=== PATIENT | male | born 1945 | race American Indian/Alaskan Native ===

== ENCOUNTER 2019-01-22 15:03 | Inpatient (IN) | payer SELFPAY ==
[2019-01-22 17:02] LABS: Absolute Lymphocytes (CBC) 1.4 K/uL (0.7-4.9); Basophils % 1.9 % (0-1.3); Eosinophils % 1.7 % (0-4.4); Hematocrit 33.2 % (39.6-49.0); Lymphocytes % 15.7 % (15.3-44.8); MPV 7.7 fL (7.6-11.3); Monocytes % 9.9 % (3.3-12.3); RBC Red Blood Cell Count 3.78 M/uL (4.33-5.43)
[2019-01-22 17:06] LABS: Albumin 2.9 g/dL (3.4-5.0); Bilirubin Total 0.3 mg/dL (0.2-1.0); Magnesium 2.1 mg/dL (1.8-2.4); Potassium 4.2 mmol/L (3.5-5.1); Protein, Total 6.7 g/dL (6.4-8.2)
[2019-01-22] MEDS: NA CHLORIDE 0.9% 1,000 ML IV SCH (17:47)
[2019-01-22] MEDS: ENOXAPARIN 30 MG/0.3 ML SQ SCH (17:52)
[2019-01-22] MEDS: Meropenem 1,000 MG in NA CHLORIDE 0.9% 100 ML IV SCH (17:53)
[2019-01-22] MEDS ORDERED: Meropenem 1000 MG/VIAL IV SCH (18:00)
[2019-01-22] MEDS ORDERED: PNEUMOCOCCAL VACCINE 0.5 ML IMVAC ONE (18:00)
[2019-01-22] MEDS ORDERED: D50W 25 GM/50 ML SYRINGE IV PRN (19:09)
[2019-01-22] MEDS ORDERED: ACETAMINOPHEN 500 MG TAB PO PRN (19:09)
[2019-01-22] MEDS ORDERED: GLUCAGON 1 MG/VIAL IM PRN (19:09)
[2019-01-22] MEDS: INSULIN -REGULAR HUMAN 50 UNIT/0.5 ML ML SQ SCH (20:52)
[2019-01-22] MEDS: CLOPIDOGREL BISULFATE 75 MG PO SCH (21:00)
[2019-01-22] MEDS: TELMISARTAN 80 MG PO SCH (21:00)
[2019-01-22] MEDS: ATORVASTATIN CALCIUM 20 MG PO SCH (21:00)
[2019-01-23] MEDS: Meropenem 1,000 MG in NA CHLORIDE 0.9% 100 ML IV SCH ×2 (05:29→17:16)
[2019-01-23] MEDS: NA CHLORIDE 0.9% 1,000 ML IV SCH ×3 (05:29→20:54)
--- NOTE | 2019-01-23 05:53 | HP ---
Date of Admission: 01/22/2019 Chief Complaint: Back pain. History Of Present Illness: This is a 73-year-old pleasant male patient who came to see me for the f irst time on January 02, 2019. He is visiting here from [place] and he came to [facility] about a month before corinne e came to see me. When he saw me on January 02, 2019, he started to have fever, chills about 24 hours b efore he came to see me, and no other complaints reported at that time. No GI or urinary complaints. No respiratory complaints. Upon exam, he had left lower quadrant abdominal tenderness and I was co ncerned about possibility of diverticulitis. Stat blood work was done which was CBC, chemistry profi le, and subsequently CAT scan of abdomen was done which showed evidence of changes of pyelonephritis, no evidence of hydronephrosis or any kidney stone, and this was involving his left kidney and left u reter system. His white count was around 17,000 to 18,000. The patient was started on Cipro and a f ew days later about 48 hours after that he became afebrile and he finished taking his Cipro. I saw corinne im on 01/17/2019 for followup. He did not have any fever, but he was not feeling back to his normal self. Had some vague abdominal discomfort, some back pain, some nausea, poor appetite. We did repea t CBC and chemistry. White count was still elevated around 15, which was slightly better compared to before. Urine culture was collected. Urinalysis done at office was still abnormal consistent with infection. Urine culture results finally came back yesterday and this was done through [facility] and it showed E coli and it is ESBL. The patient's son was contacted today and arrangements were comple janelle for patient to be admitted to hospital as a direct admission for further management of this probl em. Allergies: NO KNOWN ALLERGIES. Medications: Atorvastatin 20 mg daily, Augmentin 500 mg twice a day which was started on 01/17/2019, clopidogrel 75 mg p.o. daily, levocetirizine 5 mg p.o. daily, metformin 500 mg 2 times a day, telmis jana 80 mg p.o. daily. Review of Systems: Genitourinary: As mentioned above. GI: As mentioned above. Constitutional: As mentioned above. All other systems reviewed and negative. Social History: Positive for use of chewing tobacco, use of alcohol negative. Past Surgical History: Hemorrhoidectomy, hernia repair. Family History: Significant for father with lung cancer. Past Medical History: Significant for hypertension, hyperlipidemia, type 2 diabetes mellitus, and ch ronic kidney disease stage 3. Physical Examination: Vital Signs: Temperature 98.6, pulse 69, respiratory rate 18, blood pressure 134/80, oxygen saturati on 99%, height 5 feet 5 inches, weight 171 pounds. General: Awake, alert, oriented, not in distress. HEENT: Head atraumatic, normocephalic. Conjunctivae nonerythematous. Sclerae white. Mouth, no thr ush or edema noted. Ears/Nose, no mass, lesion, discharge noted. Neck: Supple. No JVD, lymph nodes, bruit, thyromegaly noted. Lungs: Bilateral good equal air entry. Clear to auscultation. No rhonchi. No rales. Heart: Normal heart sounds, no murmur or gallop. Abdomen: Soft, bowel sounds normal. No guarding, rigidity, tenderness, mass, hepatosplenomegaly, dis tention, or bruit noted. Extremities: No leg edema. No calf tenderness. Skin: No rash, ulcer, cellulitis. Lymphatics: No lymph node enlargement in neck, supraclavicular, infraclavicular region. Neuro: No focal neurological deficit. Chest: Unremarkable. External Genitalia: Deferred. Rectal: Deferred. Laboratory Data: White count 9.1, hemoglobin 10.9, platelets 416. Sodium 132, potassium 4.2, chlori de 99, bicarb 24, BUN 14, creatinine 1.63. His baseline creatinine is around 1.4 to 1.5, glucose 163 . Liver function test unremarkable. Hemoglobin A1c 10. Impression: 1.Acute pyelonephritis, organism Escherichia coli, extended-spectrum beta-lactamase. 2.Chronic kidney disease stage 3. 3.Hyponatremia. 4.Hypertension. 5.Type 2 diabetes mellitus. 6.Hyperlipidemia. Plan: Admit patient to hospital for further evaluation and management of this problem. The patient is appropriate for inpatient and is expected to spend 2 midnights in hospital. We will go ahead and continue home medications per order. DVT prophylaxis with Lovenox will be given. We will start isamar ent on IV meropenem 1000 mg IV piggyback every 12 hours and I will see him tomorrow for followup. De tails and plan of treatment discussed with the patient and his family. CORTNEY/SHAWN Voice ID: [id number]
[2019-01-23 05:55] LABS: Urine Appearance CLEAR; Urine Bilirubin NEGATIVE (NEG); Urine Blood TRACE (NEG); Urine Color YELLOW; Urine Glucose NEGATIVE (NEG); Urine Protein NEGATIVE (NEG); Urine Specific Gravity <=1.005 (1.005-1.030); Urine Urobilinogen 0.2 mg/dL (0.2-1.0)
[2019-01-23 05:56] LABS: Urine Microscopic Reflex ORDER UMIC
[2019-01-23 06:03] LABS: Urine Bacteria <20 /HPF (NONE SEEN); Urine Culture Reflex Order REFLEXED; Urine RBC <5 /HPF (NONE SEEN)
[2019-01-23] MEDS: INSULIN -REGULAR HUMAN 50 UNIT/0.5 ML ML SQ SCH ×4 (07:30→20:59)
--- NOTE | 2019-01-23 09:05 | RAD REPORT ---
EXAM DESCRIPTION: US - Renal Ultrasound-Complete - 01/23/2019 8:58 am CLINICAL HISTORY: Acute pyelonephritis COMPARISON: None. FINDINGS: The right kidney measures 8.8 x 4.2 x 4.0 cm. The left kidney measures 8.1 x 4.6 x 3.7 cm . Renal cortical thickness and echogenicity are normal. No hydronephrosis or suspicious renal mass. Urinary bladder is contracted limiting assessment. IMPRESSION: No hydronephrosis or suspicious renal mass. No other significant findings.
[2019-01-23] MEDS: ENOXAPARIN 30 MG/0.3 ML SQ SCH (17:17)
[2019-01-23] MEDS: METFORMIN HCL 500 MG PO SCH (17:18)
[2019-01-23] MEDS: ATORVASTATIN CALCIUM 20 MG PO SCH (20:55)
[2019-01-23] MEDS: CLOPIDOGREL BISULFATE 75 MG PO SCH (20:56)
[2019-01-23] MEDS: TELMISARTAN 80 MG PO SCH (20:57)
--- NOTE | 2019-01-24 02:21 | PN ---
Date of Progress Note: 01/23/2019 Subjective: The patient was seen this morning for followup. His son-in-law was present with him at bedside. The patient feels a lot better after IV antibiotic was started. His flank pain has resolve d completely. No GI complaints. No urinary complaints, and overall, he feels stronger compared to radha mancuso. Objective: Vital Signs: Reviewed. HEENT: Unremarkable. Lungs: Clear to auscultation. Heart: Sounds normal. Abdomen: Soft. Bowel sounds normal. No guarding, rigidity, tenderness, or distention. Extremities: No leg edema. Labs: Renal ultrasound done today is unremarkable. Impression: 1.Acute pyelonephritis, organism Escherichia coli, extended-spectrum beta-lactamase. 2.Chronic kidney disease stage 3. 3.Type 2 diabetes mellitus, uncontrolled. 4.Hypertension. 5.Hyperlipidemia. Plan: We will continue sliding scale insulin. Monitor fingerstick blood sugar. We will decide if w e need to start glimepiride while in the hospital or upon discharge we will continue metformin. Cont inue antihypertensive medication and IV antibiotics. Ambulation was encouraged. Continue IV fluid. I wi ll see him tomorrow for followup. CORTNEY/MODL Voice ID: [id number] Report ID: [id number]
[2019-01-24] MEDS: Meropenem 1,000 MG in NA CHLORIDE 0.9% 100 ML IV SCH ×2 (05:23→17:22)
[2019-01-24] MEDS: INSULIN -REGULAR HUMAN 50 UNIT/0.5 ML ML SQ SCH ×4 (07:30→21:00)
[2019-01-24] MEDS: METFORMIN HCL 500 MG PO SCH ×3 (08:00→17:23)
[2019-01-24] MEDS: GLIMEPIRIDE 2 MG TABLET PO SCH (08:28)
--- NOTE | 2019-01-24 13:27 | PN ---
Date of Progress Note: 01/24/2019 Subjective: The patient was seen this morning for followup. No new complaints or problems reported by him. Denies any abdominal pain, back pain. No nausea, vomiting, diarrhea. Objective: Vital Signs: Reviewed. HEENT: Unremarkable. Lungs: Clear to auscultation. Heart: Sounds normal. Abdomen: Soft. Bowel sounds normal. No guarding, rigidity, tenderness, or distention. Extremities: No leg edema. Impression: 1.Acute pyelonephritis. 2.Chronic kidney disease, stage 3. 3.Diabetes mellitus. 4.Hypertension. Plan: We will go ahead and discontinue IV fluid. Continue IV meropenem. Renal ultrasound was unrem arkable. Details were discussed with the patient. We will repeat blood work tomorrow. I will see h im tomorrow for followup. CORTNEY/MODL Voice ID: [id number] Report ID: [id number]
[2019-01-24] MEDS: ENOXAPARIN 30 MG/0.3 ML SQ SCH (17:22)
[2019-01-24] MEDS: TELMISARTAN 80 MG PO SCH (21:57)
[2019-01-24] MEDS: ATORVASTATIN CALCIUM 20 MG PO SCH (21:57)
[2019-01-24] MEDS: CLOPIDOGREL BISULFATE 75 MG PO SCH (21:57)
[2019-01-25] MEDS: Meropenem 1,000 MG in NA CHLORIDE 0.9% 100 ML IV SCH ×2 (05:36→19:37)
[2019-01-25 06:13] LABS: Absolute Lymphocytes (CBC) 0.7 K/uL (0.7-4.9); Basophils % 0.4 % (0-1.3); Hematocrit 25.5 % (39.6-49.0); Lymphocytes % 6.2 % (15.3-44.8); MPV 8.2 fL (7.6-11.3); Monocytes % 4.8 % (3.3-12.3); RBC Red Blood Cell Count 2.93 M/uL (4.33-5.43)
[2019-01-25 06:27] LABS: Potassium 5.3 mmol/L (3.5-5.1)
[2019-01-25] MEDS ORDERED: SUCCINYLCHOLINE 20 MG/ML (10 ML) IV ONE (07:28)
[2019-01-25] MEDS ORDERED: FENTANYL CITR 250 MCG/5 ML ONE (07:28)
[2019-01-25] MEDS ORDERED: PROPOFOL 200 MG/20 ML VIAL IV ONE ×3 (07:28→17:37)
[2019-01-25 07:30] LABS: Blood Morphology Comment NOT SEEN (NOT SEEN); Platelet Estimate ADEQ
[2019-01-25] MEDS ORDERED: EPHEDRINE SULF 50 MG/ML VIAL ONE (07:31)
[2019-01-25] MEDS ORDERED: MORPHINE SULFATE/PF 1 MG/ML (10 ML AMP) ONE (07:31)
[2019-01-25] MEDS ORDERED: OXYTOCIN 10 UNIT/ML ML IV ONE (07:31)
[2019-01-25] MEDS ORDERED: Phenylephrine HCl 10 MG/ML 1 ML VIAL ONE (08:02)
[2019-01-25] MEDS: INSULIN -REGULAR HUMAN 50 UNIT/0.5 ML ML SQ SCH ×4 (08:26→21:08)
[2019-01-25] MEDS: GLIMEPIRIDE 2 MG TABLET PO SCH (08:27)
[2019-01-25 08:29] LABS: Basophils % 0.7 % (0-1.3); Hematocrit 25.7 % (39.6-49.0); Lymphocytes % 14.7 % (15.3-44.8); MPV 8.1 fL (7.6-11.3); Monocytes % 6.3 % (3.3-12.3); RBC Red Blood Cell Count 2.92 M/uL (4.33-5.43)
[2019-01-25 08:41] LABS: Albumin 2.6 g/dL (3.4-5.0); Bilirubin Total 0.3 mg/dL (0.2-1.0); Potassium 4.6 mmol/L (3.5-5.1); Protein, Total 6.2 g/dL (6.4-8.2); Uric Acid 3.4 mg/dL (3.5-7.2)
[2019-01-25 10:48] LABS: Urine Appearance CLOUDY; Urine Bilirubin NEGATIVE (NEG); Urine Blood NEGATIVE (NEG); Urine Color YELLOW; Urine Glucose 1+ (NEG); Urine Protein 1+ (NEG); Urine Specific Gravity 1.015 (1.005-1.030); Urine Urobilinogen 0.2 mg/dL (0.2-1.0); Urine pH 6.5 (5.0-7.0)
[2019-01-25] MEDS: NA CHLORIDE 0.9% 1,000 ML IV SCH ×2 (10:49→19:36)
[2019-01-25] MEDS ORDERED: FAMOTIDINE 20 MG/2 ML VIAL IV SCH (11:00)
[2019-01-25 11:47] LABS: Urine Culture Reflex Order NOT NEEDED
[2019-01-25 11:52] LABS: Urine Bacteria <20 /HPF (NONE SEEN); Urine RBC <5 /HPF (NONE SEEN)
[2019-01-25] MEDS: PANTOPRAZOLE INJ 80 MG in NA CHLORIDE 0.9% 250 ML IV SCH (12:30)
[2019-01-25 12:34] LABS: Absolute Lymphocytes (CBC) 1.9 K/uL (0.7-4.9); Basophils % 0.8 % (0-1.3); Eosinophils % 0.1 % (0-4.4); Hematocrit 20.5 % (39.6-49.0); Lymphocytes % 16.7 % (15.3-44.8); RBC Red Blood Cell Count 2.34 M/uL (4.33-5.43)
[2019-01-25 12:42] LABS: Potassium 4.5 mmol/L (3.5-5.1)
[2019-01-25] MEDS ORDERED: ERYTHROMYCIN 500 MG in NA CHLORIDE 0.9% 100 ML IV ONE (14:08)
[2019-01-25] MEDS ORDERED: ONDANSETRON 4 MG/2 ML VIAL IV PRN (14:08)
[2019-01-25] MEDS ORDERED: PROMETHAZINE 25 MG/ML VIAL IV PRN (14:08)
[2019-01-25] MEDS ORDERED: NA CHLORIDE 0.9% 250 ML ONE ×2 (14:24→20:12)
--- NOTE | 2019-01-25 16:43 | EKG ---
Test Date: 2019-01-25 Test Time: 10:18:10 Hand Ii Tube Bender: DIANA MEASUREMENT RESULTS: Intervals: Rate: 95 AR: 118 QRSD: 76 QT: 366 QTc: 459 Braddock: P: 55 AR: 118 QRS: 62 T: -10 INTERPRETIVE STATEMENTS: Normal sinus rhythm Nonspecific T wave abnormality Abnormal ECG No previous ECG available for comparison Electronically Signed On 01-25-19 16:41:43 CDT by Shay Cano
--- NOTE | 2019-01-25 16:46 | PN ---
Date of Progress Note: 01/25/2019 Subjective: The patient was seen this morning for followup. When I saw him this morning, he was keerthi estrada in bed. His son-in-law was present with him at bedside and reported that around 3 o'clock early m orning, the patient felt like he was having some upset stomach and felt like some acid problem. He w ent to the bathroom and vomited once and that looked like coffee-grounds emesis. After that vomiting episode as he was standing in the bathroom, he felt very weak and appeared somewhat confused, so vikas bala helped him at that time and he was diaphoretic. He was brought back to the room. After he vomit ed, he said his upset stomach feeling started to feel better. Did not have any chest pain. Nursing staff reported that the vomitus looked like coffee-ground type of material, but the patient thinks th at, that could have been due to some certain type of food that he ate yesterday. In any case, this m orning when I saw him, he was feeling somewhat better compared to last night. Denies any back pain. No diarrhea. No blood in stool. No black stool. Vital signs reviewed. His blood pressure was low when he had this episode during nighttime, systolic blood pressure between 100 to 110. When I saw h im, he was lying in bed, not in distress. Objective: Vital Signs: Reviewed. HEENT: Unremarkable. Lungs: Clear to auscultation. No rhonchi. No rales. Heart: Heart sounds normal. Abdomen: Soft. Bowel sounds normal. No guarding, rigidity. No tenderness. No distention. No hepa tosplenomegaly. No bruit. Extremities: No leg edema. Laboratory Data: This morning, his white count was 11.7, hemoglobin 8.4, platelets 391. His hemoglo bin 2 days ago on 01/22/2019 was 10.9 and white count was 9.1 at that time. I repeated another CBC. This morning white count 13.4, hemoglobin 8.4, platelets 423. His last chemistry, sodium 137, potas sium 4.6, chloride 103, bicarb 24, BUN 50, creatinine 1.87, glucose 199. His uric acid level 8.5. T otal CPK was 24 and troponin less than 0.02. Impression: 1.Acute pyelonephritis, organism Escherichia coli. 2.extended-spectrum beta-lactamase. 3.Acute kidney injury. 4.Volume depletion. Plan: After I saw the patient, IV Pepcid was ordered. IV fluid bolus was ordered along with mainten ance IV fluid and after then I saw the patient, he had an episode of coffee-ground emesis and faintin g type of episode. His family was present with him at bedside, so he did not have any fall or injury . Nurses did evaluate him and contacted me, informed me that he had coffee-ground emesis and I have ordered another set of blood work along with 2 units of PRBC for type and crossmatch and we will cons ider blood transfusion depending on his blood test. We will discontinue his Plavix that he has been on it for long time after he had stroke several years ago. We will discontinue his Lovenox that he w as getting for DVT prophylaxis. Nurse was advised to put SCD in place for DVT prophylaxis. We will keep him n.p.o. IV fluid and IV Protonix were started. We do not have any GI on-call. So, depending on how he does with this GI bleeding problem, we will have to make a decision to transfer him to [facility]. If he does not improve with conservative medical treatment that we are providing right now and if he requires any endoscopy, then we will have to transfer him to [place]. I will see him tomorrow for followup and this morning, I have discontinued his metformin and telmisartan. CORTNEY/MODL Voice ID: [id number] Report ID: [id number]
[2019-01-25] MEDS ORDERED: LIDOCAINE 1% MPF 5 ML VIAL ONE (17:09)
[2019-01-25] MEDS ORDERED: NA CHLORIDE 0.9% 1,000 ML ONE (17:13)
[2019-01-25] MEDS ORDERED: EPINEPHRINE/PF 1 MG/ML AMP ONE (19:37)
[2019-01-25] MEDS: OCTREOTIDE 500 MCG in NA CHLORIDE 0.9% 500 ML IV SCH (19:37)
[2019-01-25] MEDS: NA CHLORIDE 0.9% 250 ML IV SCH ×2 (20:29→22:52)
[2019-01-26] MEDS: NA CHLORIDE 0.9% 250 ML IV SCH (01:10)
--- NOTE | 2019-01-26 01:26 | OP ---
Surgeon: Radu Hui MD Procedure To Be Performed: Esophagogastroduodenoscopy. Indication For Procedure: Significant upper gastrointestinal bleed and hypotension. Plan For Anesthesia: Monitored anesthesia care. Classification: Emergency. Technique: After obtaining informed consent from the patient, explaining risks and complications whi ch include but are not limited to bleeding, infection, perforation, and anesthesia complication, isamar ent was placed in the left lateral position and sedation was given. From then on, the scope was adva nced through the mouth and eventually was able to be guided up to the second portion of the duodenum. After the completion of procedure, the scope and equipment were withdrawn and procedure terminated in a safe manner. Findings and maneuvers done are listed below. Esophagus: No gross lesion seen in the whole esophagus. Small hiatal hernia seen in the distal port ion. Stomach: As soon as I entered the stomach, there was significant amount of retained food versus food mixed with old coffee-ground blood. A total amount of 800 cc of this brownish fluid was aspirated. This was done to prevent any risk of aspiration. Subsequently, careful examination of the stomach w as done. No gross lesion to explain bleeding was seen. Duodenum: After the exam of the stomach, scope was passed through the pylorus into the duodenum. As soon as I entered into the duodenum, a huge clot of blood with possible active oozing around was see n. This made visualization impossible. With slow maneuvering, I was able to go past this area into the second portion of the duodenum. Old clotted blood was seen along with some bile. It was clear t hat the source of bleeding was from the bulb. Subsequently, we tried to remove the clot. It was ext remely difficult at first, so I switched the scopes to a larger bore colonoscopy scope to facilitate, but to no avail. Then we started to remove the clot in pieces with the help of sometimes Morrison net, sometimes snare. Eventually, I was able to remove the whole clot. Underlying what I found was a black y large ulcer with one visible vessel and a site for the retired vessel on top along with a clot. Pl ease see images for details. I first injected epinephrine into both the sites, around 5 cc of total injections. Subsequently, used gold probe to cauterize these lesions. Subsequently, I put one clip on the smaller vessel and two clips on the larger one. Hemostasis was achieved at this time. The sc ope was subsequently withdrawn. Complications: None. Tolerance To Anesthesia: Excellent. Postoperative Diagnosis: Large duodenal ulcer with large clot and bleeding, status post treatment. Plan: Continue monitoring in the ICU. I would recommend keep n.p.o. for an additional 24 hours, the n start with clear liquids. Continue IV Protonix. I will also add octreotide which I would want to keep for 48 hours. There is a risk of rebleeding and we will therefore monitor in the hospital. [place] id anticoagulants and anti-platelet agents for now. I did remove part of the clot at the base of the ulcer and sent it to Pathology for further analysis, as it had initially looked suspicious, to rule out any other process. US/MODL Voice ID: [id number] Report ID: [id number]
[2019-01-26] MEDS: PANTOPRAZOLE INJ 80 MG in NA CHLORIDE 0.9% 250 ML IV SCH ×3 (01:47→21:22)
[2019-01-26] MEDS: NA CHLORIDE 0.9% 1,000 ML IV SCH ×2 (03:00→09:00)
[2019-01-26] MEDS: OCTREOTIDE 500 MCG in NA CHLORIDE 0.9% 500 ML IV SCH ×2 (04:04→16:55)
[2019-01-26 06:02] VITALS: BMI 30.2
[2019-01-26 06:12] LABS: Absolute Lymphocytes (CBC) 1.8 K/uL (0.7-4.9); Basophils % 1.5 % (0-1.3); Eosinophils % 0.9 % (0-4.4); Lymphocytes % 17.2 % (15.3-44.8); MPV 7.7 fL (7.6-11.3); Monocytes % 8.1 % (3.3-12.3); RBC Red Blood Cell Count 3.43 M/uL (4.33-5.43)
[2019-01-26 06:31] LABS: Magnesium 2.2 mg/dL (1.8-2.4); Potassium 4.5 mmol/L (3.5-5.1)
[2019-01-26] MEDS: Meropenem 1,000 MG in NA CHLORIDE 0.9% 100 ML IV SCH ×2 (07:19→18:00)
[2019-01-26] MEDS: INSULIN -REGULAR HUMAN 50 UNIT/0.5 ML ML SQ SCH ×4 (07:30→22:31)
--- NOTE | 2019-01-26 09:59 | PN ---
Date of Progress Note: 01/26/2019 Subjective: The patient was seen this morning for followup. He was lying in bed in ICU, sleeping, e asily arousable. Denies any complaints. No chest pain, shortness of breath. No abdominal complaint s at all. Overnight, he remained stable in ICU. Objective: Vital signs: Reviewed. HEENT: Unremarkable. Lungs: Clear to auscultation. Heart: Sounds normal. Abdomen: Soft. Bowel sounds normal. No guarding, rigidity, tenderness, or distention. Extremities: No leg edema. Laboratory Data: White count 10.5, hemoglobin 10, platelets 299. Sodium 143, potassium 4.5, chlorid e 113, bicarb 22, BUN 50, creatinine 1.57, glucose 162, magnesium 2.2. Impression: 1.Acute upper gastrointestinal bleeding. 2.Duodenal ulcer with bleeding. 3.Acute blood loss anemia. 4.Acute pyelonephritis, organism Escherichia coli, extended-spectrum beta-lactamase. 5.Chronic kidney disease stage 3. 6.Volume depletion. 7.Hypertension. 8.Hyperlipidemia. 9.History of stroke. Plan: Yesterday, after the patient was transferred to ICU, he started to receive blood transfusion a nd he received 1 unit of blood transfusion and then had an EGD done. EGD showed approximately 800 cc of coffee-grounds emesis in the stomach, which was aspirated and subsequently the rest of the stomac h appeared normal. No source of bleeding from stomach, but duodenal bulb had a large blood clot, and underneath that blood clot, the patient had an ulcer with 2 visible blood vessels with bleeding, whi ch was cauterized and Endoclip was applied by Dr. Hui. All those findings were discussed with corinne morton and the patient's family. After the procedure, patient came into ICU, remained clinically stable, received a total of 3 units of PRBC, 1 unit of single-donor platelet, and overnight his condition wood s improved. Hemodynamically, he is stable. We will plan to move him out of ICU to regular room. Pl an is to continue IV Protonix drip for 48 hours, IV Sandostatin drip until 6 p.m. today or so, and en we will discontinue that. We will keep him n.p.o. until 6 p.m. and then start him on clear liquid diet. The patient may get out of bed and start to ambulate with assistance. We will continue IV an tibiotic meropenem and reduce IV fluid to 20 cc/hour, as with his Protonix and Sandostatin drip, he i s altogether getting 75 cc of fluid per hour. CORTNEY/MODL Voice ID: [id number] Report ID: [id number]
[2019-01-27] MEDS: NA CHLORIDE 0.9% 1,000 ML IV SCH (04:11)
[2019-01-27] MEDS: OCTREOTIDE 500 MCG in NA CHLORIDE 0.9% 500 ML IV SCH (04:12)
[2019-01-27] MEDS: PANTOPRAZOLE INJ 80 MG in NA CHLORIDE 0.9% 250 ML IV SCH ×2 (04:12→15:01)
[2019-01-27] MEDS: Meropenem 1,000 MG in NA CHLORIDE 0.9% 100 ML IV SCH ×2 (06:00→17:12)
[2019-01-27] MEDS ORDERED: Meropenem 1 GM/100 ML BAG ONE (06:42)
[2019-01-27 06:48] LABS: Absolute Lymphocytes (CBC) 1.4 K/uL (0.7-4.9); Basophils % 0.3 % (0-1.3); Eosinophils % 3.9 % (0-4.4); Hematocrit 27.4 % (39.6-49.0); MPV 7.7 fL (7.6-11.3); Monocytes % 8.3 % (3.3-12.3); RBC Red Blood Cell Count 3.19 M/uL (4.33-5.43)
[2019-01-27 07:05] LABS: Potassium 4.4 mmol/L (3.5-5.1)
[2019-01-27] MEDS: INSULIN -REGULAR HUMAN 50 UNIT/0.5 ML ML SQ SCH ×4 (08:57→21:00)
--- NOTE | 2019-01-27 13:54 | PN ---
Date of Progress Note: 01/27/2019 Subjective: The patient was seen this morning for followup. He was sleeping, easily arousable, not in distress. Denies any chest pain, shortness of breath, abdominal pain, nausea, vomiting. Objective: Vital Signs: Reviewed. HEENT: Unremarkable. Lungs: Clear to auscultation. No rhonchi or rales. Heart: Sounds normal. Abdomen: Soft. Bowel sounds normal. No guarding, rigidity, tenderness, or distention. Extremities: No leg edema. Laboratory Data: White count 9.1, hemoglobin 9.3, platelets 304. Yesterday's hemoglobin was 10. To day, sodium 142, potassium 4.4, chloride 112, bicarb 25, BUN 32, creatinine 1.52, glucose 146. Impression: 1.Acute pyelonephritis, organism Escherichia coli, extended-spectrum beta-lactamase, improved. 2.Acute blood loss anemia. 3.Duodenal ulcer with bleeding. 4.Acute kidney injury, improved. 5.Chronic kidney disease, stage 3. 6.Hypertension. 7.Type 2 diabetes mellitus. Plan: We will go ahead and continue current medications. The patient is on currently IV Protonix, w hich will continue until this evening or tomorrow morning and then, we will change it to oral Protoni x 40 mg twice a day. Continue current antibiotic, which is meropenem for ESBL. We will discontinue Sandostatin. Diabetes will be managed with sliding scale insulin right now, and we will continue him on clear liquid diet, which was started yesterday evening and depending on his condition tomorrow, w e will decide if we can change from clear liquid diet to soft diet tomorrow or not. We will disconti nue SCD per patient request and he was advised to stay active in the room with ambulation and while lying in the bed. Also, he was advised how to keep moving his legs to reduce ch ances of any DVTs. CORTNEY/MODL Voice ID: [id number] Report ID: [id number]
[2019-01-28] MEDS: PANTOPRAZOLE INJ 80 MG in NA CHLORIDE 0.9% 250 ML IV SCH (00:55)
[2019-01-28 05:16] LABS: Absolute Lymphocytes (CBC) 1.5 K/uL (0.7-4.9); Basophils % 1.4 % (0-1.3); Eosinophils % 5.4 % (0-4.4); Hematocrit 27.3 % (39.6-49.0); MPV 7.8 fL (7.6-11.3); Monocytes % 9.8 % (3.3-12.3); RBC Red Blood Cell Count 3.15 M/uL (4.33-5.43)
[2019-01-28 05:21] LABS: Potassium 3.8 mmol/L (3.5-5.1)
[2019-01-28] MEDS: Meropenem 1,000 MG in NA CHLORIDE 0.9% 100 ML IV SCH ×2 (06:00→17:13)
[2019-01-28] MEDS: INSULIN -REGULAR HUMAN 50 UNIT/0.5 ML ML SQ SCH ×4 (07:30→21:00)
[2019-01-28] MEDS ORDERED: SODIUM CHLORIDE 0.9% 10ML INJ IV PRN (08:39)
[2019-01-28] MEDS: PANTOPRAZOLE 40 MG INJ IVP SCH ×2 (09:52→22:20)
--- NOTE | 2019-01-28 18:20 | RAD REPORT ---
EXAM DESCRIPTION: USCarotid Artery Bilateral01/28/2019 5:56 pm CLINICAL HISTORY: tia COMPARISON: None FINDINGS: The velocity of the right internal carotid artery equals 101 cm/sec. The right ICA/CCA rat io 1.4 The velocity of the left internal carotid artery equals 97 cm/sec. The left ICA/CCA ratio 1.3 Mild plaque is present within the carotid arteries. The vertebral arteries demonstrate antegrade flow IMPRESSION: Mild plaque within the carotid arteries without evidence of a hemodynamically significan t stenosis NASCET criteria used. Mild 0-49% stenosis Moderate 50-69% stenosis Severe 70-99% stenosis
--- NOTE | 2019-01-29 00:33 | PN ---
Date of Progress Note: 01/28/2019 Subjective: Patient was seen this morning for followup. He was sleeping, easily arousable, not in a ny distress. Denies any abdominal pain, nausea, vomiting, chest pain, shortness of breath. He is to lerating clear liquid diet well, ambulating well. Objective: Vital Signs: Reviewed. HEENT Examination: Unremarkable. Lungs: Clear to auscultation. Heart: Sounds normal. Abdomen: Soft. Bowel sounds normal. No guarding, rigidity, tenderness, distention. Extremities: No leg edema. Laboratory Data: White count 7.1, hemoglobin 9.1, platelets 292. Sodium 138, potassium 3.8, chlorid e 105, bicarb 26. BUN 23, creatinine 1.56, glucose 134. Impression: 1.Acute pyelonephritis, organism Escherichia coli, extended-spectrum beta-lactamase. 2.Chronic kidney disease, stage 3. 3.Volume depletion, improved. 4.Acute kidney injury, improved. 5.Acute blood loss anemia, stable. 6.Duodenal ulcer with bleeding, stable. 7.Hypertension. 8.Diabetes mellitus. Plan: We will go ahead and advance from clear liquid diet to soft diet starting at lunchtime today. Carotid Doppler will be done today; we will follow up on results. Continue IV meropenem and our mya n is to discharge him to go home tomorrow. Ambulation was encouraged. Details and plan of treatment disc ussed with the patient. CORTNEY/MODL Voice ID: [id number] Report ID: [id number]
[2019-01-29] MEDS: Meropenem 1,000 MG in NA CHLORIDE 0.9% 100 ML IV SCH (06:19)
[2019-01-29] MEDS: INSULIN -REGULAR HUMAN 50 UNIT/0.5 ML ML SQ SCH (08:56)
[2019-01-29] MEDS: PANTOPRAZOLE 40 MG INJ IVP SCH (08:57)
[2019-01-29 09:07] VITALS: BP 114/61; TEMP 97.9
[2019-01-29 10:49] VITALS: O2SAT 100
--- NOTE | 2019-01-30 21:06 | DS ---
Date of Discharge: 01/29/2019 Disposition: Discharged to go home. Physical Examination: HEENT: Examination unremarkable. Lungs: Clear to auscultation. Heart: Sounds normal. Abdomen: Soft. Bowel sounds normal. No guarding, rigidity, tenderness, distention. Extremities: No leg edema. Hospital Course: A 73-year-old pleasant male patient, admitted to the hospital with acute pyelonephr itis and his urine culture done on outpatient basis grew E. coli which was ESBL. Once we received [facility] information, decision was made to admit him to hospital for IV antibiotic, which is meropenem, whi ch is the drug of choice for this infection. The patient was started on 1000 mg IV piggyback every 1 2 hours. He started improving within less than 24 hours. He started to feel much better. He had so me flank pain, which has completely resolved. He was feeling weak, tired, and all those constitution al symptoms resolved within 24 hours or so. Last week on Monday, all of a sudden the patient started to have upper GI bleeding problem. He had 2 episodes of upper GI bleeding and hemoglobin dropped do wn to 6.6. He had almost syncopal episode with this upper GI bleed while he was in the bathroom with hematemesis. There was no injury. Hemodynamically, he was stable. IV fluid was started. He was t ransferred to ICU and he was given total of 3 units of PRBC blood transfusion and 1 unit of single-do nor platelet. His condition remained stable in ICU. Dr. Hui was consulted from GI Service and the patient had EGD done on Monday that revealed presence of approximately 800 cc of maroon to brown color fluid in the stomach, which was aspirated and Dr. Hui found out large ulcer in duodenal bu lb with a blood clot covering the ulcer, which was removed and there were couple of visible blood ves sels with oozing at the ulcer base and he cauterized and applied Endo clip there. Bleeding had stopp ed and procedure completed after the patient was in ICU overnight, his condition was stable. Next da y hemoglobin was stable and he was transferred out of ICU to regular room. He was kept n.p.o. for 24 hours after the procedure. Protonix drip was continued for 48 hours or so and he was also started o n Sandostatin drip which was continued for about 24 hours after the procedure, and then Sandostatin d rip was discontinued. 24 hours after the procedure, he was started on clear liquid diet, which he to lerated well and then subsequently it was advanced to soft diet as of yesterday. The patient does no t have any further signs, symptoms of GI bleed. He had stroke several years ago and he recovered fro m the stroke completely but ever since that time he was taking Plavix 75 mg daily and obviously we di scontinued that. I talked to Dr. Hui and he has allowed us to restart Plavix after 1 week, pref erably after 2 weeks, so we will definitely wait for about 2 weeks before we start him on Plavix. Ca rotid Doppler done yesterday was negative for any hemodynamically significant stenotic lesion. His r enal ultrasound was unremarkable. Discharge Diagnoses: 1.Acute pyelonephritis, organism Escherichia coli, extended-spectrum beta-lactamase. 2.Duodenal ulcer with hemorrhage. 3.Acute blood loss anemia. 4.Acute kidney injury. 5.Hypertension. 6.Type 2 diabetes mellitus. 7.Hyperlipidemia. 8.Hyponatremia. 9.Chronic kidney disease stage 3. Laboratory Data: Labs done during this hospitalization; lowest hemoglobin on 01/25/2019 was 6.6 and highest white count that particular morning was 13.4. Last white count yesterday 7.1, hemoglobin 9.1 , platelets 292. Day before yesterday, hemoglobin was 9.3. Last chemistry yesterday; sodium 138, po tassium 3.8, chloride 105, bicarb 26, BUN 23, creatinine 1.56, glucose 133, hemoglobin A1c was 10. Discharge Medication Instructions: 1.Continue all prior home medications except stop metformin, stop clopidogrel. 2.Do not take any aspirin, Motrin, ibuprofen, etc and the patient was told that he may use Tylenol 5 00 mg 3-4 times a day as needed for pain. 3.Take wcbu-tur-whrasbf iron ferrous sulfate 325 mg p.o. daily. 4.Take edeu-fmh-crlcbsm constipation medication Senokot-S 1-2 tablets p.o. daily as needed for const ipation. 5.Take pantoprazole 40 mg twice a day. 6.Start glimepiride 1 mg. The patient to take 1 tablet by mouth daily with breakfast and he will co elio to monitor his fingerstick blood sugar before breakfast and before dinner and if his blood sug ar persist at 200, then he will increase the dose of glimepiride 1 mg with breakfast and then 1 mg wi th supper. The patient and patient's son-in-law they were made aware of this instruction this aristeo forrester when I saw him. The patient will follow up at my office during last week of this month. CORTNEY/MODL Voice ID: [id number] Report ID: [id number]
== END 2019-01-29 10:35 | disposition home or self-care (01) | DRG 689 ==
LOC: 2ND 15:12 → 3RD-ICU 01-25 14:36 → 4TH 01-26 12:41
PROVIDERS: ADMIT Internal Medicine; ATTEND Internal Medicine
PROC: 0DC98ZZ Extirpation of Matter from Duodenum, Via Natural or Artificial Opening Endoscopic (ICD-10-PCS; 2019-01-25)
PROC: 30233N1 Transfusion of Nonautologous Red Blood Cells into Peripheral Vein, Percutaneous Approach (ICD-10-PCS; 2019-01-25)
PROC: 30233R1 Transfusion of Nonautologous Platelets into Peripheral Vein, Percutaneous Approach (ICD-10-PCS; 2019-01-25)
PROC: 0W3P8ZZ Control Bleeding in Gastrointestinal Tract, Via Natural or Artificial Opening Endoscopic (ICD-10-PCS; principal; 2019-01-25 16:24)
DX: N10 Acute pyelonephritis (principal); K26.4 Chronic or unspecified duodenal ulcer with hemorrhage; E87.1 Hypo-osmolality and hyponatremia; D62 Acute posthemorrhagic anemia; N17.9 Acute kidney failure, unspecified; B96.20 Unspecified Escherichia coli [E. coli] as the cause of diseases classified elsewhere; Z16.12 Extended spectrum beta lactamase (ESBL) resistance; E86.9 Volume depletion, unspecified; I12.9 Hypertensive chronic kidney disease with stage 1 through stage 4 chronic kidney disease, or unspecified chronic kidney disease; E11.22 Type 2 diabetes mellitus with diabetic chronic kidney disease; N18.3 Chronic kidney disease, stage 3 (moderate); E78.5 Hyperlipidemia, unspecified; F17.220 Nicotine dependence, chewing tobacco, uncomplicated; Z23 Encounter for immunization; Z79.02 Long term (current) use of antithrombotics/antiplatelets; Z86.73 Personal history of transient ischemic attack (TIA), and cerebral infarction without residual deficits
CPT/HCPCS: 36415; 36430; 76770; 80048; 80053; 81001; 81003; 81015; 82274; 82550; 82962; 83036; 83735; 84145; 84484; 84550; 85025; 86850; 86900; 86901; 87040; 87086; 87088; 88304; 88305; 93005; 93880; C9113; J0171; J0330; J1650; J2185; J2354; J2370; J2590; J2704; J3010; J7030; P9016; P9035

== ENCOUNTER 2019-02-12 12:33 | Inpatient (IN) | payer SELFPAY ==
[2019-02-12 13:09] VITALS: BMI 29.2
[2019-02-12] MEDS ORDERED: D50W 25 GM/50 ML SYRINGE IV PRN (13:52)
[2019-02-12] MEDS ORDERED: GLUCAGON 1 MG/VIAL IM PRN (13:52)
[2019-02-12 14:36] LABS: Absolute Lymphocytes (CBC) 1.1 K/uL (0.7-4.9); Basophils % 1.4 % (0-1.3); Hematocrit 24.9 % (39.6-49.0); Lymphocytes % 16.1 % (15.3-44.8); MPV 7.7 fL (7.6-11.3); RBC Red Blood Cell Count 2.86 M/uL (4.33-5.43)
[2019-02-12 15:00] LABS: Albumin 2.4 g/dL (3.4-5.0); Bilirubin Total 0.4 mg/dL (0.2-1.0); Magnesium 2.2 mg/dL (1.8-2.4); Potassium 4.2 mmol/L (3.5-5.1)
[2019-02-12] MEDS: NA CHLORIDE 0.9% 1,000 ML IV SCH (15:05)
[2019-02-12] MEDS: Meropenem 1,000 MG in NA CHLORIDE 0.9% 100 ML IV SCH ×2 (15:12→21:13)
[2019-02-12] MEDS ORDERED: Meropenem 1000 MG/VIAL IV SCH (16:00)
[2019-02-12] MEDS: INSULIN -REGULAR HUMAN 50 UNIT/0.5 ML ML SQ SCH ×2 (16:11→21:00)
[2019-02-12] MEDS: ENOXAPARIN 30 MG/0.3 ML SQ SCH (16:46)
[2019-02-12 18:08] LABS: Urine Appearance CLEAR; Urine Bilirubin NEGATIVE (NEG); Urine Blood 1+ (NEG); Urine Color YELLOW; Urine Glucose NEGATIVE (NEG); Urine Protein NEGATIVE (NEG); Urine Specific Gravity <=1.005 (1.005-1.030); Urine Urobilinogen 0.2 mg/dL (0.2-1.0); Urine pH 6.5 (5.0-7.0)
[2019-02-12 18:24] LABS: Urine Bacteria 20-50 /HPF (NONE SEEN); Urine Culture Reflex Order NOT NEEDED
--- NOTE | 2019-02-13 02:01 | HP ---
Date of Admission: 02/12/2019 Chief Complaint: Fever, chills, and urinary tract infection. History Of Present Illness: 73-year-old male patient who was in the hospital about 2 to 3 weeks ago with acute pyelonephritis with organism E coli, which was ESBL. He was treated with IV meropenem for 1 week. He responded well to treatment and was discharged to go home and he was doing fine until so me time last week. He started to have fever and chills probably around Monday or of last week. During this time when he started to have this fever and chills and some suprapubic pain, I wa s actually out of town, so patient's family member contacted 1 of their physician friend, who ordered CBC, Chem-7, and urine culture. All these results came back yesterday and his urine culture grew E coli and it is ESBL again. Creatinine has gone up to 2.5. His last creatinine upon discharge from [facility] was 1.5. His white count was 18, and the patient's family contacted me yesterday evening when I came back to town and a decision was made to admit him to the hospital today for further eval uation and management. He kept on having fever up until yesterday, temperature was 99.8 and last 24 hours prior to that for a few days, his temperature was between 101 to 102. He denies any dysuria or hematuria. No flank pain. Has some suprapubic pain. He takes his medication as prescribed. Allergies: NO KNOWN ALLERGIES. Medications: List reviewed. Review of Systems: Genitourinary: As mentioned above. Constitutional: As mentioned above. All other systems reviewed and negative. Social History: Positive for chewing tobacco. Use of alcohol, negative. Past Surgical History: Hemorrhoid surgery and hernia repair. Family History: Significant for father with lung cancer. Past Medical History: Hypertension, hyperlipidemia, type 2 diabetes mellitus, chronic kidney disease stage 3, and during his last hospital admission, he had acute blood loss anemia with acute upper GI bleeding, which was a result of duodenal ulcer. Physical Examination: Vital Signs: Upon admission, temperature 97.4, pulse 77, respiratory rate 17, blood pressure 126/69, oxygen saturation 99%. Height 5 feet 5 inches, weight 175 pounds. General: Awake, alert, oriented, not in distress. HEENT: Head atraumatic, normocephalic. Conjunctivae nonerythematous. Sclerae white. Mouth, no thr ush or edema noted. Ears/Nose, no mass, lesion, discharge noted. Neck: Supple. No JVD, lymph nodes, bruit, thyromegaly noted. Lungs: Bilateral good equal air entry. Clear to auscultation. No rhonchi. No rales. Heart: Normal heart sounds, no murmur or gallop. Abdomen: He has some minimum suprapubic tenderness . Extremities: No leg edema. No calf tenderness. Skin: No rash, ulcer, cellulitis. Lymphatics: No lymph node enlargement in neck, supraclavicular, infraclavicular region. Neuro: No focal neurological deficit. Chest: Unremarkable. External Genitalia: Deferred. Rectal: Deferred. Laboratory Data: White count 6.6, hemoglobin 8.5, platelets 314. Sodium 137, potassium 4.2, chlorid e 107, bicarb 23, BUN 15, creatinine 2.40, glucose 102. Liver function tests unremarkable. Procalci tonin 0.25. Urinalysis done today, leukocyte esterase 3+, bacteria 20 to 50, wbc 20 to 50. Impression: 1.Acute pyelonephritis. 2.Rule out sepsis. 3.Acute blood loss anemia. 4.Volume depletion . 5.Chronic kidney disease stage 3. 6.Hypertension. 7.Hyperlipidemia. 8.Type 2 diabetes mellitus. Plan: We will admit the patient to the hospital for further evaluation and management of this proble m. Patient is appropriate for inpatient and is expected to spend 2 midnights in the hospital. . We will follow up on urine culture and blood culture which was done today prior to starting I V antibiotics. After admission to the hospital, patient had a short run of ventricular tachycardia. He was asymptomatic, hemodynamically stable. We will get an echo with Doppler tomorrow to evaluate left ventricular ejection fraction. CORTNEY/MODL Voice ID: [id number]
[2019-02-13] MEDS: NA CHLORIDE 0.9% 1,000 ML IV SCH ×3 (03:20→16:03)
[2019-02-13] MEDS: INSULIN -REGULAR HUMAN 50 UNIT/0.5 ML ML SQ SCH ×4 (07:30→21:00)
[2019-02-13] MEDS: Meropenem 1,000 MG in NA CHLORIDE 0.9% 100 ML IV SCH ×2 (08:15→21:05)
--- NOTE | 2019-02-13 15:49 | ECHO ---
HEIGHT: 5 ft 5 in WEIGHT: 175 lb 6 oz DATE OF STUDY: 02/13/[address]: Amol Reilly MD 2-DIMENSIONAL: YES M.MODE: YES DOPPLER: YES COLOR FLOW: YES TDS: YES PORTABLE: NO DEFINITY: NO BUBBLE STUDY: NO DIAGNOSIS: EVALUATE LVEF, PAROXYSMAL VTACH CARDIAC HISTORY: CATHERIZATION: NO SURGERY: NO PROSTHETIC VALVE: NO PACEMAKER: NO MEASUREMENTS (cm) DIASTOLIC (NORMALS) SYSTOLIC (NORMALS) IVSd 0.9 (0.6-1.2) LA Diam 3.5 (1.9-4.0) LVEF 60-69% LVIDd 3.5 (3.5-5.7) LVIDs 1.8 (2.0-3.5) %FS 49% LVPWd 0.9 (0.6-1.2) Ao Diam 2.2 (2.0-3.7) 2 DIMENSIONAL ASSESSMENT: RIGHT ATRIUM: NORMAL LEFT ATRIUM: NORMAL RIGHT VENTRICLE: NORMAL LEFT VENTRICLE: NORMAL TRICUSPID VALVE: NORMAL MITRAL VALVE: NORMAL PULMONIC VALVE: NORMAL AORTIC VALVE: NORMAL PERICARDIAL EFFUSION: NONE AORTIC ROOT: NORMAL LEFT VENTRICULAR WALL MOTION: NORMAL DOPPLER/COLOR FLOW: TRACE MITRAL REGURGITATION. COMMENTS: NORMAL 2D ECHOCARDIOGRAM. TRACE MITRAL REGURGITATION, OTHERWISE NORMAL 2D ECHOCARDIOGRAM WITH DOPPLER. TECHNOLOGIST: Scotty CHEN
[2019-02-13] MEDS: ENOXAPARIN 30 MG/0.3 ML SQ SCH (16:46)
--- NOTE | 2019-02-14 00:34 | PN ---
Date of Progress Note: 02/13/2019 Subjective: Patient was seen this morning for followup. No new complaints or problems reported by kelly hoyt. Objective: General: Lying in bed. Not in distress. Vital Signs: Reviewed. HEENT: Examination unremarkable. Lungs: Clear to auscultation. Heart: Sounds normal. Abdomen: Soft. Bowel sounds normal. No guarding, rigidity, tenderness, or distention. Extremities: No leg edema. Impression: 1.Acute pyelonephritis, organism Escherichia coli, extended-spectrum beta-lactamase. 2.Hypertension. 3.Type 2 diabetes mellitus. 4.Volume depletion. 5.Hyperlipidemia. Plan: We will continue current medication. Continue current antibiotic meropenem. Culture result p ending. We will continue IV fluid. Repeat blood work tomorrow. Ambulation was encouraged. I will see him tomorrow for followup. We will get an echo with Doppler to evaluate left ventricular ejectio n fraction. Patient had 10-beat run of ventricular tachycardia yesterday. He was asymptomatic, hemo dynamically stable. No further intervention will be needed if echocardiogram shows normal ejection f raction. I have asked the patient to follow up with his linux server administrator on an elective outpatient basis to get a stress test done. CORTNEY/MODL Voice ID: [id number] Report ID: [id number]
[2019-02-14] MEDS: NA CHLORIDE 0.9% 1,000 ML IV SCH ×2 (05:19→20:50)
[2019-02-14 06:52] LABS: Absolute Lymphocytes (CBC) 1.4 K/uL (0.7-4.9); Basophils % 1.7 % (0-1.3); Hematocrit 26.4 % (39.6-49.0); MPV 7.5 fL (7.6-11.3); RBC Red Blood Cell Count 3.04 M/uL (4.33-5.43)
[2019-02-14 07:04] LABS: Potassium 4.1 mmol/L (3.5-5.1)
[2019-02-14] MEDS: INSULIN -REGULAR HUMAN 50 UNIT/0.5 ML ML SQ SCH ×4 (07:30→21:00)
[2019-02-14 08:10] LABS: Blood Morphology Comment NOT SEEN (NOT SEEN); Platelet Estimate ADEQ
[2019-02-14] MEDS: Meropenem 1,000 MG in NA CHLORIDE 0.9% 100 ML IV SCH ×2 (08:45→20:58)
[2019-02-14] MEDS: ENOXAPARIN 30 MG/0.3 ML SQ SCH (16:27)
--- NOTE | 2019-02-14 20:57 | PN ---
Date of Progress Note: 02/14/2019 Subjective: Patient was seen this morning. He was lying in bed not in distress, feeling much better than before. Objective: Vital Signs: Reviewed. Denies any complaints. HEENT: Unremarkable. Lungs: Clear to auscultation. Heart: Sounds normal. Abdomen: Soft. Bowel sounds normal. No guarding, rigidity, tenderness, distention. Extremities: No leg edema. Impression: 1.Acute pyelonephritis. 2.Sepsis. 3.Acute kidney injury. 4.Hypertension. 5.Type 2 diabetes mellitus. Plan: Patient's blood culture came back positive today showing gram-negative rods. Sputum culture a lso growing gram-negative rods; definite identification and sensitivity result is pending. We will f annaleelow up on culture final results. Meanwhile, continue meropenem. Echocardiogram from yesterday res ults reviewed showing normal ejection fraction. No need for any further intervention at this time an d I will see him tomorrow for followup. CORTNEY/MODL Voice ID: [id number] Report ID: [id number]
[2019-02-15 06:16] LABS: Potassium 4.6 mmol/L (3.5-5.1)
[2019-02-15 06:19] LABS: Absolute Lymphocytes (CBC) 1.2 K/uL (0.7-4.9); Basophils % 1.3 % (0-1.3); Hematocrit 25.1 % (39.6-49.0); Lymphocytes % 16.4 % (15.3-44.8); MPV 7.5 fL (7.6-11.3); RBC Red Blood Cell Count 2.93 M/uL (4.33-5.43)
[2019-02-15] MEDS: INSULIN -REGULAR HUMAN 50 UNIT/0.5 ML ML SQ SCH ×4 (07:30→21:00)
[2019-02-15] MEDS: NA CHLORIDE 0.9% 1,000 ML IV SCH ×3 (08:40→22:00)
--- NOTE | 2019-02-15 12:59 | RAD REPORT ---
EXAM DESCRIPTION: RAD - Chest Single View - 02/15/2019 12:48 pm CLINICAL HISTORY: Device placement PICC line placement COMPARISON: none FINDINGS: A PICC line has been inserted with its tip in the distal superior vena cava. The lungs appear clear of acute infiltrate. The heart is normal size. IMPRESSION: PICC line with its tip in the distal superior vena cava
[2019-02-15] MEDS: Meropenem 1,000 MG in NA CHLORIDE 0.9% 100 ML IV SCH ×2 (13:26→21:30)
[2019-02-15] MEDS: ENOXAPARIN 30 MG/0.3 ML SQ SCH (16:21)
--- NOTE | 2019-02-15 22:49 | PN ---
Date of Progress Note: 02/15/2019 Objective: Patient was seen this morning for followup. No new complaints or problems reported by barrera bill. He is feeling much better. Denies any abdominal pain, flank pain. No chest pain or shortness of breath. No palpitations. Last night, he had a short episode of SVT, and 2 days ago, he had a few b eats of ventricular tachycardia. No other problems reported. Objective: Vital Signs: Reviewed. HEENT: Unremarkable. Lungs: Clear to auscultation. Heart: Sounds normal. Abdomen: Soft. Bowel sounds normal. No guarding, rigidity, tenderness, or distention. Extremities: No leg edema. Laboratory Data: White count 7.2, hemoglobin 8.6, platelets 401. Sodium 140, potassium 4.6, chlorid e 110, bicarb 25, BUN 10, creatinine 1.94, glucose 76. His urine culture is growing E coli and it is ESBL. Blood culture is gram positive cocci in cluster. We will follow up on final report on it, bu t it could be likely skin contaminant. Impression: 1.Acute pyelonephritis, organism Escherichia coli, extended-spectrum beta-lactamase. 2.Hypertension. 3.Acute kidney injury. 4.Volume depletion. 5.Diabetes mellitus, type 2. Plan: We will continue current medication. Continue meropenem per order. Continue IV fluid. Renal function is slowly improving. Patient was having trouble with his IV access this morning, so PICC line was ordered. I will see him tomorrow for followup. CORTNEY/MODL Voice ID: [id number] Report ID: [id number]
[2019-02-16] MEDS: NA CHLORIDE 0.9% 1,000 ML IV SCH ×3 (04:44→18:46)
[2019-02-16 05:28] LABS: Absolute Lymphocytes (CBC) 1.4 K/uL (0.7-4.9); Basophils % 1.3 % (0-1.3); Hematocrit 25.6 % (39.6-49.0); Lymphocytes % 18.8 % (15.3-44.8); MPV 7.5 fL (7.6-11.3); RBC Red Blood Cell Count 2.97 M/uL (4.33-5.43)
[2019-02-16 05:37] LABS: Potassium 4.1 mmol/L (3.5-5.1)
[2019-02-16] MEDS: INSULIN -REGULAR HUMAN 50 UNIT/0.5 ML ML SQ SCH ×4 (07:30→20:35)
[2019-02-16] MEDS: Meropenem 1,000 MG in NA CHLORIDE 0.9% 100 ML IV SCH ×2 (09:31→21:33)
[2019-02-16] MEDS: ENOXAPARIN 30 MG/0.3 ML SQ SCH (16:30)
--- NOTE | 2019-02-16 17:46 | PN ---
Date of Progress Note: 02/16/2019 Subjective: Patient was seen this morning for followup. No new complaints or problems reported by kelly hoyt. He was sitting in the chair. Denies any chest pain, shortness of breath, back pain. No abd ominal pain. No nausea or vomiting. Objective: Vital Signs: Reviewed. HEENT: Unremarkable. Lungs: Clear to auscultation. No rhonchi or rales. Heart: Sounds normal. Abdomen: Soft. Bowel sounds normal. No guarding, rigidity, tenderness, distention. Extremities: No leg edema. Laboratory Data: White count 7.3, hemoglobin 8.4, platelets 361. Sodium 138, potassium 4.1, chlorid e 107, bicarb 24, BUN 12, creatinine 1.72, glucose 75. Impression: 1.Acute pyelonephritis, organism Escherichia coli, extended-spectrum beta-lactamase. 2.Acute kidney injury. 3.Chronic kidney disease stage 3. 4.Hypertension. 5.Type 2 diabetes mellitus. Plan: We will continue current IV antibiotic, which is meropenem. Renal function seems to be improv ing every day. Continue IV fluid. Continue current antihypertensive medication and diabetes medicine. We will consider to start him on metoprolol, currently on meropenem. CORTNEY/MODL Voice ID: [id number] Report ID: [id number]
[2019-02-17] MEDS: NA CHLORIDE 0.9% 1,000 ML IV SCH ×3 (00:40→14:00)
[2019-02-17] MEDS: INSULIN -REGULAR HUMAN 50 UNIT/0.5 ML ML SQ SCH ×4 (07:30→21:00)
[2019-02-17] MEDS: Meropenem 1,000 MG in NA CHLORIDE 0.9% 100 ML IV SCH ×2 (08:53→21:13)
--- NOTE | 2019-02-17 16:18 | PN ---
Date of Progress Note: 02/17/2019 Subjective: Patient was seen this morning for followup. No new complaints/problems reported by isamar ent. He was sitting in the chair. Denies any chest pain, shortness of breath, abdominal pain, nause a, vomiting. Objective: Vital Signs: Reviewed. General: He is ambulating well in the room. HEENT: Unremarkable. Lungs: Clear to auscultation. No rhonchi or rales. Heart: Sounds normal. Abdomen: Soft. Bowel sounds normal. No guarding, rigidity, tenderness, distention. Extremities: No leg edema. Impression: 1.Acute pyelonephritis. 2.Acute kidney injury. 3.Hypertension. 4.Diabetes mellitus. Plan: We will continue current medication. Continue current antibiotic, IV fluid. Repeat blood wor k tomorrow morning, and we will discontinue Lovenox as per my discussion with the patient as he is am bulating well and he is not bed confined. His risk of DVT is low compared to other patients. CORTNEY/MODL Voice ID: [id number] Report ID: [id number]
[2019-02-18] MEDS: NA CHLORIDE 0.9% 1,000 ML IV SCH ×4 (01:33→20:05)
[2019-02-18 05:11] LABS: Absolute Lymphocytes (CBC) 1.6 K/uL (0.7-4.9); Basophils % 1.1 % (0-1.3); Hematocrit 25.3 % (39.6-49.0); Lymphocytes % 18.2 % (15.3-44.8); MPV 7.1 fL (7.6-11.3); RBC Red Blood Cell Count 2.92 M/uL (4.33-5.43)
[2019-02-18 05:23] LABS: Potassium 3.9 mmol/L (3.5-5.1)
[2019-02-18] MEDS: INSULIN -REGULAR HUMAN 50 UNIT/0.5 ML ML SQ SCH ×3 (07:30→16:25)
[2019-02-18] MEDS: Meropenem 1,000 MG in NA CHLORIDE 0.9% 100 ML IV SCH ×2 (08:50→20:06)
--- NOTE | 2019-02-18 19:16 | PN ---
Date of Progress Note: 02/18/2019 Subjective: Patient was seen this morning for followup. No new complaints or problems reported. He was lying in bed, not in distress. Denied any complaints. Objective: Vital Signs: Reviewed. HEENT: Unremarkable. Lungs: Clear to auscultation. Heart: Sounds normal. Abdomen: Soft. Bowel sounds normal. No guarding, rigidity, tenderness, or distention. Extremities: No leg edema. Laboratory Data: White count 8.8, hemoglobin 8.5, platelets 378. Sodium 139, potassium 3.9, chlorid e 108, bicarb 24. BUN 10, creatinine 1.54, glucose 78. Impression: 1.Acute pyelonephritis. 2.Acute kidney injury, improving. 3.Hypertension. 4.Type 2 diabetes mellitus. Plan: Fingerstick blood sugar readings reviewed. Yesterday evening, he had hypoglycemia and reason behind that is he had late lunch and subsequently he ended up getting insulin injection for sliding s francia at suppertime. I have advised the patient and his family member to make sure not to take any in sulin injections and we will just monitor the fingerstick blood sugar, but no need for insulin inject ions at this point, and I have advised him to eat his meals in timely manner which is breakfast, lunc h and dinner at particular time. Renal function is improving well. We will continue IV fluid, but reduced rate. CORTNEY/MODL Voice ID: [id number] Report ID: [id number]
[2019-02-19] MEDS: Meropenem 1,000 MG in NA CHLORIDE 0.9% 100 ML IV SCH ×2 (08:44→21:23)
[2019-02-19] MEDS: NA CHLORIDE 0.9% 1,000 ML IV SCH (21:22)
[2019-02-19 23:49] VITALS: O2SAT 100
--- NOTE | 2019-02-20 00:17 | PN ---
Date of Progress Note: 02/19/2019 Subjective: Patient was seen this morning for followup. No new complaints or problems reported by h im. He was lying in bed, not in distress. No chest pain, shortness of breath. No palpitation. Objective: Vital Signs: Reviewed. HEENT: Unremarkable. Lungs: Clear to auscultation. Heart: Sounds normal. Abdomen: Soft. Bowel sounds normal. No guarding, rigidity, tenderness, or distention. Extremities: No leg edema. Impression: 1.Acute pyelonephritis. 2.Acute kidney injury. 3.Chronic kidney disease stage 3. 4.Hypertension. 5.Type 2 diabetes mellitus. Plan: Patient's blood pressure has remained elevated. Vital signs reviewed. We will start him on m etoprolol 25 mg twice a day, prescription was sent to [facility], and patient's family will pick it up and start it. Continue other current medications including IV meropenem. We will repeat blood work tomorrow. I will see him in the morning for a followup. CORTNEY/MODL Voice ID: [id number] Report ID: [id number]
[2019-02-20 05:42] LABS: Absolute Lymphocytes (CBC) 1.6 K/uL (0.7-4.9); Basophils % 1.5 % (0-1.3); Lymphocytes % 20.2 % (15.3-44.8); MPV 7.7 fL (7.6-11.3); RBC Red Blood Cell Count 3.04 M/uL (4.33-5.43)
[2019-02-20 06:13] LABS: Magnesium 2.2 mg/dL (1.8-2.4); Potassium 3.8 mmol/L (3.5-5.1)
[2019-02-20] MEDS: Meropenem 1,000 MG in NA CHLORIDE 0.9% 100 ML IV SCH ×2 (09:49→22:19)
[2019-02-20] MEDS: NA CHLORIDE 0.9% 1,000 ML IV SCH (10:00)
--- NOTE | 2019-02-21 00:58 | PN ---
Date of Progress Note: 02/20/2019 Subjective: Patient was seen this morning for followup, lying in bed, not in distress. No new compl aints or problems reported by the patient. Objective: HEENT: Unremarkable. Lungs: Clear to auscultation. Heart: Sounds normal. Abdomen: Soft. Bowel sounds normal. No guarding, rigidity, tenderness, distention. Extremities: No leg edema. Laboratory Data: White count 7.8, hemoglobin 8.8, platelets 347. Sodium 139, potassium 3.8, chlorid e 108, bicarb 27, BUN 10, creatinine 1.66, glucose 78. PSA 0.9. Impression: 1.Acute pyelonephritis. 2.Volume depletion. 3.Diabetes mellitus. 4.Hypertension. Plan: We will continue current medications, IV fluid, IV antibiotics. I will see him tomorrow for f ollowup. Possible discharge to go home tomorrow. CORTNEY/MODL Voice ID: [id number] Report ID: [id number]
[2019-02-21] MEDS: Meropenem 1,000 MG in NA CHLORIDE 0.9% 100 ML IV SCH (08:21)
[2019-02-21 09:00] VITALS: BP 159/81; TEMP 97.9
--- NOTE | 2019-02-22 05:28 | DS ---
Date of Discharge: 02/21/2019 Physical Examination: HEENT: Unremarkable. Lungs: Clear to auscultation. Heart: Sounds normal. Abdomen: Soft. Bowel sounds normal. No guarding, rigidity, tenderness, or distention. Extremities: No leg edema. Laboratory Data: Upon admission, white count 6.6, hemoglobin 8.5, platelets 314. Last hemoglobin ye 8.8, white count 7.8, platelets 347. Last chemistry from yesterday; sodium 139, potassium 3. 8, chloride 108, bicarb 27, BUN 10, creatinine 1.66, glucose 78. His PSA is 0.91. Echocardiogram sh owed normal ejection fraction. Hospital Course: A 73-year-old male patient admitted to the hospital with fever, chills with recurre nce of urinary tract infection with organism E coli, ESBL. Please see dictated H and P for more info rmation. Patient was admitted to the hospital. Blood work was repeated, urinalysis and urine cultur e were repeated and the patient was started on IV meropenem. He tolerated this antibiotic very well. He also had volume depletion and acute kidney injury when he first came in. IV fluid was given uriel t actually helped to resolve acute kidney injury problem. His creatinine now is back to its baseline at 1.5 to 1.6 range. This is his second admission within a month or so with pyelonephritis with org anism E coli, which is ESBL. We did talk about importance of personal hygiene and as per my discussi on with him, he is taking appropriate precautions and caring for his personal hygiene. During this h ospitalization, he had 7 to 8 beats run of nonsustained ventricular tachycardia episodes during night time. He was hemodynamically stable and asymptomatic. Two days after that, he had episode of about 30 seconds or less than 30 seconds run of SVT. Once again, he was hemodynamically stable and asympto matic. Echocardiogram showed normal ejection fraction. His blood pressure has remained a little bit elevated during this hospitalization, so we have decided to add metoprolol 25 twice a day. Prescrip tion for metoprolol was sent to his pharmacy and also sent prescription for nitrofurantoin 100 mg by mouth daily. Patient to follow up at my office a week after next and start taking nitrofurantoin 100 mg daily. Plan is to give it to him for 3 months to see whether that helps to reduce any chances of recurrence of this pyelonephritis infection resistant bacteria or not. We will go ahead and ask him to continue all his other prior home medications. I will see him at office a week after next and few days before that patient to get CBC, chem 7, urinalysis, and urine culture. Final Diagnoses: 1.Acute pyelonephritis, organism Escherichia coli, extended-spectrum beta-lactamase. 2.Supraventricular tachycardia. 3.Paroxysmal ventricular tachycardia. 4.Benign prostatic hypertrophy. 5.Hypertension. 6.Acute kidney injury. 7.Hyperlipidemia. 8.Type 2 diabetes mellitus. 9.Anemia. 10.Volume depletion. 11.Chronic kidney disease, stage 3. CORTNEY/MODL Voice ID: [id number] Report ID: [id number]
== END 2019-02-21 10:47 | disposition home or self-care (01) | DRG 690 ==
LOC: 2ND 12:43
PROVIDERS: ADMIT Internal Medicine; ATTEND Internal Medicine
PROC: 02HV33Z Insertion of Infusion Device into Superior Vena Cava, Percutaneous Approach (ICD-10-PCS; principal; 2019-02-15)
DX: N10 Acute pyelonephritis (principal); D62 Acute posthemorrhagic anemia; I47.1 Supraventricular tachycardia; B96.20 Unspecified Escherichia coli [E. coli] as the cause of diseases classified elsewhere; Z16.12 Extended spectrum beta lactamase (ESBL) resistance; N17.9 Acute kidney failure, unspecified; E86.9 Volume depletion, unspecified; I12.9 Hypertensive chronic kidney disease with stage 1 through stage 4 chronic kidney disease, or unspecified chronic kidney disease; E11.22 Type 2 diabetes mellitus with diabetic chronic kidney disease; N18.3 Chronic kidney disease, stage 3 (moderate); E78.5 Hyperlipidemia, unspecified; F17.220 Nicotine dependence, chewing tobacco, uncomplicated; N40.0 Benign prostatic hyperplasia without lower urinary tract symptoms
CPT/HCPCS: 36415; 71045; 80048; 80053; 81001; 82962; 83735; 84145; 85025; 87040; 87077; 87086; 87088; 87186; 87205; 93306; G0103; J1650; J7030